=== PATIENT | female | born 1985 | race Caucasian/White ===

== ENCOUNTER 2019-03-03 01:17 | Emergency (ER) | payer SELFPAY ==
[2019-03-03] MEDS ORDERED: Sodium Chloride 0.9% 1,000 ML IV ONE ×2 (01:35→02:40)
[2019-03-03] MEDS ORDERED: Ondansetron 4 MG/2 ML SDV IVPUSH ONE ×2 (01:36→04:52)
[2019-03-03] MEDS ORDERED: Sodium Chloride 0.9% 10 ML Syringe FLUSH PRN (01:51)
--- NOTE | 2019-03-03 03:04 | EDM.PDOC ---
ED HPI GENERAL MEDICAL PROBLEM - General Chief Complaint: Drug or Alcohol Abuse Stated Complaint: INTOXICATED Time Seen by Provider: 03/03/19 02:00 Source of Information: Reports: Other (friend) History Limitations: Reports: Intoxication - History of Present Illness INITIAL COMMENTS - FREE TEXT/NARRATIVE: 33-year-old female is brought in emergency room for evaluation due to intoxication, nausea and vomiting. Patient has had approximately a 5 vodka drinks tonight. She is been experiencing nausea and vomiting while at the [employer] dance. No significant past medical history is known. Onset: Today Onset Date: 03/03/19 Onset Time: 02:00 Duration: Improving Location: Reports: Generalized Severity: Severe Improves with: Reports: None Worsens with: Reports: None Context: Reports: Other (Intoxication) Associated Symptoms: Reports: Confusion, Nausea/Vomiting - Related Data Allergies Allergy/AdvReac Type Severity Reaction Status Date / Time Sulfa (Sulfonamide Allergy Hives Verified 03/03/19 01:39 Antibiotics) ED ROS GENERAL - Review of Systems Review Of Systems: Unable To Obtain ED EXAM, GENERAL - Physical Exam Exam: See Below Exam Limited By: Intoxication General Appearance: Lethargic Ears: Hearing Grossly Normal Nose: Normal Inspection Throat/Mouth: Normal Voice, No Airway Compromise Head: Atraumatic, Normocephalic Neck: Normal Inspection Respiratory/Chest: No Respiratory Distress, Lungs Clear, Normal Breath Sounds Cardiovascular: Regular Rate, Rhythm GI/Abdominal: Soft Back Exam: Normal Inspection Extremities: Normal Inspection Neurological: Slow to Respond Psychiatric: Tearful Skin Exam: Warm, Dry, Intact, Normal Color, No Rash Course - Vital Signs Last Recorded V/S: Last Vital Signs Temp 96.4 F 03/03/19 01:30 Pulse 71 03/03/19 01:30 Resp 16 03/03/19 01:30 BP 128/78 03/03/19 01:30 Pulse Ox 100 03/03/19 01:30 - Orders/Labs/Meds Orders: Active Orders 24 hr Category Date Time Status Peripheral IV Care [RC] . DIRECTED Care 03/03/19 01:51 Active Sodium Chloride 0.9% [Saline Flush] Med 03/03/19 01:51 Active 10 ml FLUSH Q8HR PRN Peripheral IV Insertion Adult [OM.PC] Routine Oth 03/03/19 01:51 Ordered Medication Orders Sodium Chloride (Saline Flush) 10 ml FLUSH Q8HR PRN PRN Reason: keep vein open Last Admin: 03/03/19 02:02 Dose: 10 ml Labs: Laboratory Tests 03/03/19 Range/Units 01:45 Ethyl Alcohol 155 H* (NONE DETECTED) mg/dL Meds: Medications Generic Name Dose Route Start Last Admin Trade Name Henry PRN Reason Stop Dose Admin Sodium Chloride 10 ml 03/03/19 01:51 03/03/19 02:02 Saline Flush FLUSH 10 ml Q8HR PRN Administration keep vein open Discontinued Medications Generic Name Dose Route Start Last Admin Trade Name Henry PRN Reason Stop Dose Admin Sodium Chloride 1,000 mls @ 999 mls/hr 03/03/19 01:35 03/03/19 01:25 Normal Saline IV 03/03/19 02:35 999 mls/hr .BOLUS ONE Administration Sodium Chloride 1,000 mls @ 999 mls/hr 03/03/19 02:40 03/03/19 02:39 Normal Saline IV 03/03/19 03:40 999 mls/hr .BOLUS ONE Administration Ondansetron HCl 4 mg 03/03/19 01:36 03/03/19 01:48 Zofran IVPUSH 03/03/19 01:37 4 mg ONETIME ONE Administration - Re-Assessments/Exams Free Text/Narrative Re-Assessment/Exam: 03/03/19 03:01 Second liter of IV fluids is running. Patient is resting. She was given Zofran 4 mg IV. Nausea and vomiting has ceased the last hour. Free Text/Narrative Re-Assessment/Exam: 03/03/19 03:05 Patient had O2 sats desaturations approximately an hour ago. O2 saturations dropped down into the 70s. She was placed on 2 L of O2 oxygen has been maintaining 100% O2 saturation. Free Text/Narrative Re-Assessment/Exam: 03/03/19 03:37 Patient was able to get up and go to the bathroom she did not experience any vomiting. Her aunt is now here at her bedside. Departure - Departure Time of Disposition: 16:00 Disposition: Home, Self-Care 01 Condition: Good Clinical Impression: Alcohol intoxication Qualifiers: Complication of substance-induced condition: uncomplicated Qualified Code(s): F10.920 - Alcohol use, unspecified with intoxication, uncomplicated - Discharge Information Instructions: Alcohol Intoxication - My Orders Last 24 Hours: My Active Orders 03/03/19 01:51 Peripheral IV Care [RC] . DIRECTED Sodium Chloride 0.9% [Saline Flush] 10 ml FLUSH Q8HR PRN Peripheral IV Insertion Adult [OM.PC] Routine - Assessment/Plan Last 24 Hours: My Active Orders 03/03/19 01:51 Peripheral IV Care [RC] . DIRECTED Sodium Chloride 0.9% [Saline Flush] 10 ml FLUSH Q8HR PRN Peripheral IV Insertion Adult [OM.PC] Routine Assessment:: Alcohol intoxication Plan: 1. Patient will need to be monitored throughout the rest the night. Patient's aunt that she will take her home and watch her. 2. She'll continue to need to push oral hydration. 3. Tylenol 650 every 6 hours for headaches.
[2019-03-03] MEDS ORDERED: Sodium Chloride 0.9% 50 ML IV SCH (04:30)
[2019-03-03] MEDS ORDERED: Promethazine 25 MG/ML SDV IM SCH (08:25)
== END 2019-03-03 09:30 | disposition home or self-care (01) ==
LOC: KA.ED 01:17
DX: F10.920 Alcohol use, unspecified with intoxication, uncomplicated (principal); Y90.6 Blood alcohol level of 120-199 mg/100 ml; Z88.2 Allergy status to sulfonamides
CPT/HCPCS: 96361; 96372; 96374; 96376; 99283; 99284-25; G0480; J2405; J2550; J7030; J7050